=== PATIENT | male | born 1950 | race Two or more races ===

== ENCOUNTER 2017-05-18 20:00 | Inpatient (IN) | payer MEDICARE, MEDICAID ==
[2017-05-18 20:39] VITALS: BP 134/72
[2017-05-18] MEDS ORDERED: Maalox 30 mL Cup PO PRN (22:14)
[2017-05-18] MEDS ORDERED: Magnesium Hydroxide (MOM) 30 mL UDC PO PRN (22:14)
[2017-05-19] MEDS: Multivitamin Tab PO SCH (08:39)
--- NOTE | 2017-05-19 20:37 | Psychosocial Evaluation ---
DATE OF SERVICE: JUSTIFICATION FOR HOSPITALIZATION: The patient acting bizarre, apparently acting strange behind the worship, agitated. CHIEF COMPLAINT: "I am here because they brought me." HISTORY OF PRESENT ILLNESS: A 67-year-old male acting strange apparently behind the worship, variable information, very poor historian, minimizing all of his symptoms. Denying depression, denying anxiety. States he was not combative or agitated. He states that he was not suicidal. Apparently acting bizarre by the police. The patient states he sleeps okay, eating okay. Denying any anhedonia, hopeless thoughts. PAST PSYCHIATRIC HISTORY: Unclear. Denies any psychiatric hospitalizations. Denies suicide history. MEDICATIONS: Noted. FAMILY HISTORY: Unknown. SOCIAL HISTORY: Born in [place], living in [place], not . He states he has 5 kids. Denies drugs, alcohol or tobacco, but U-tox positive for methamphetamines and alcohol, which could certainly at least partially explain some of his behaviors. MEDICAL HISTORY: Noted. MENTAL STATUS EXAMINATION: Stated age, calm, cooperative, fair orientation, mood clinical fine. Affect flat, fairly nonchalant and different. Thought processes were grossly engaged, not the best historian, minimizing his symptoms. No overt SI or HI, but he was acting quite bizarre that is why he was brought in to the hospital. Insight and judgment diminished. PROVISIONAL DIAGNOSES: Psychosis, unspecified; mood, unspecified. Under medical, please see full H and P. ESTIMATED LENGTH OF STAY: 5-7 days. ASSESSMENT: The patient requiring inpatient hospitalization, acting bizarre, strange, brought in by police. PLAN: We will continue to monitor. We will show patient's a safe discharge plan and potentially start medications as needed. CONDITIONS FOR DISCHARGE: Improved mood, improved affect and better control of any psychotic symptoms. JOB# [id number]
--- NOTE | 2017-05-19 20:50 | History & Physical ---
ADMIT DATE: 05/18/2017 HISTORY OF PRESENT ILLNESS: The patient is a 67-year-old male admitted to our [facility] under Dr. Russ's service for evaluation and treatment. The patient denies any chest pain, shortness of breath, nausea, vomiting, fever, or chills. PAST MEDICAL HISTORY: Significant for anxiety disorder and degenerative joint disease. PAST SURGICAL HISTORY: No recent surgery. ALLERGIES: None. MEDICATIONS: Follow admission reconciliation. SOCIAL HISTORY: No smoking. No alcohol. No drugs. FAMILY HISTORY: Noncontributory. REVIEW OF SYSTEMS: IMMUNO SYSTEM: No history of chronic renal disorder. CARDIOVASCULAR SYSTEM: No coronary artery disease. ENDOCRINE SYSTEM: No diabetes or thyroid problem. GASTROINTESTINAL SYSTEM: No upper or lower gastrointestinal bleed. NEUROLOGICAL SYSTEM: No seizure disorder. MUSCULOSKELETAL SYSTEM: No muscular dystrophy. HEMATOLOGIC SYSTEM: No bleeding tendency. RESPIRATORY SYSTEM: No asthma. GENITOURINARY: No dysuria or hematuria. PHYSICAL EXAMINATION: GENERAL: He is awake, alert, and oriented. VITAL SIGNS: Temperature 98, heart rate 88, and blood pressure 132/70. HEENT: Normocephalic. Pupils reacting to light. Sclerae clear. NECK: Supple. Negative for lymphadenopathy, JVD, or bruit. CHEST: Air entry bilaterally normal. No rales, rhonchi, or wheezing. HEART: S1 and S2 normal. No gallop rhythm. ABDOMEN: Soft. Bowel sounds positive. EXTREMITIES: No edema. NEUROLOGIC: Awake, alert, and oriented. No focal motor or sensory deficit. Cranial nerves 2-12 is intact. ASSESSMENT: 1. Degenerative joint disease. 2. Chronic anxiety disorder. PLAN: The patient in the hospital under Dr. Russ's service. Medical problems addressed during hospitalization was anxiety disorder. Medical problems to be addressed at discharge is degenerative joint disease. The patient is medically stable for activity. Thank you, Dr. Russ, for asking me to see your patient. [facility]# [id number]
[2017-05-20] MEDS: Multivitamin Tab PO SCH (09:27)
--- NOTE | 2017-05-20 19:26 | Internal Medicine Prog Note ---
Internal Medicine Subjective - Subjective Service Date: 05/20/17 Patient seen and examined:: with staff Patient is:: awake, in bed, talking, confused Per staff patient has:: no adverse event (NO CHST PAIN OR SOB) Internal Medicine Objective - Results Recent Labs: Laboratory Last Values POC Glucose 60 MG/DL (70 - 105) L 05/18/17 21:38 - Physical Exam Vitals and I&O: Vital Signs Temp 98.4 F 05/20/17 15:08 Pulse 72 05/20/17 15:08 Resp 18 05/20/17 15:08 BP 120/74 05/20/17 15:08 Pulse Ox 95 05/20/17 15:08 Intake & Output 05/20/17 05/20/17 05/21/17 06:59 18:59 07:59 Intake Total 028 728 8800 Balance 422 336 6385 Intake: Oral 642 009 1089 Other: # Voids 1 2 3 # Bowel Movements 0 1 Active Medications: Current Medications Acetaminophen (Tylenol) 650 mg PO Q4HR PRN PRN Reason: Mild Pain / Temp above 100 Stop: 07/17/17 21:25 Al Hydrox/Mg Hydrox/Simethicone (Maalox) 30 ml PO Q4HR PRN PRN Reason: GI DISTRESS Stop: 07/17/17 22:13 Lorazepam (Ativan) 0.5 mg PO Q4HR PRN; Protocol PRN Reason: Anxiety Stop: 06/17/17 22:13 Magnesium Hydroxide (Milk Of Magnesia) 30 ml PO HS PRN PRN Reason: Constipation Multivitamins/Vitamin C (Theragran) 1 tab PO DAILY KAYA Stop: 07/18/17 08:59 Last Admin: 05/20/17 09:27 Dose: 1 tab Zolpidem Tartrate (Ambien) 5 mg PO HS PRN PRN Reason: Insomnia Stop: 07/17/17 22:13 General: demented HEENT: NC/AT, PERRLA, EOMI, anicteric sclerae, throat clear Neck: Supple, No JVD, No thyromegaly Lungs: CTAB Cardiovascular: RRR, Normal S1, Normal S2, without murmur Abdomen: non-tender, non-distended Extremities: clear Neurological: no change Internal Medicine Assmt/Plan - Assessment Assessment: 1.DJD. 2.CHRONIC ANXIETY DISORDER - Plan Plan: CONTINUE ON CURRENT MEDICATION AND DIET.
--- NOTE | 2017-05-21 05:17 | Progress Notes ---
DATE: Dr. Luciano covering for Dr. Russ. SUBJECTIVE: Chart reviewed and the patient interviewed. Also discussed the patient's condition with the staff and reviewed records and labs. The patient continued to be a poor historian and still seems to be psychotic and responding. The patient also is minimizing the reason why he is in the hospital. Apparently, the patient was acting strange behind gnosticist. He also denying all symptoms of problems. The patient also needs redirections because of episodes of irritability and agitation. During interview, the patient seems to be preoccupied and responding. ASSESSMENT: The patient is still psychotic. TREATMENT PLAN: We will continue monitoring his behavior and his condition and continue adjusting psychotropic medications and continue to work on evaluating his condition and followup. JOB# [id number]
[2017-05-21] MEDS: Multivitamin Tab PO SCH (08:09)
--- NOTE | 2017-05-21 23:51 | Internal Medicine Prog Note ---
Internal Medicine Subjective - Subjective Service Date: 05/21/17 Patient seen and examined:: without staff Patient is:: awake, in bed, talking, confused Per staff patient has:: no adverse event (NO CHST PAIN OR SOB) Internal Medicine Objective - Results Recent Labs: Laboratory Last Values POC Glucose 60 MG/DL (70 - 105) L 05/18/17 21:38 - Physical Exam Vitals and I&O: Vital Signs Temp 98.3 F 05/21/17 20:52 Pulse 76 05/21/17 20:52 Resp 18 05/21/17 20:52 BP 120/75 05/21/17 20:52 Pulse Ox 97 05/21/17 20:52 Intake & Output 05/21/17 05/21/17 05/22/17 06:59 18:59 06:59 Intake Total 1200 Balance 1200 Intake: Oral 1200 Other: # Voids 3 # Bowel Movements Active Medications: Current Medications Acetaminophen (Tylenol) 650 mg PO Q4HR PRN PRN Reason: Mild Pain / Temp above 100 Stop: 07/17/17 21:25 Al Hydrox/Mg Hydrox/Simethicone (Maalox) 30 ml PO Q4HR PRN PRN Reason: GI DISTRESS Stop: 07/17/17 22:13 Lorazepam (Ativan) 0.5 mg PO Q4HR PRN; Protocol PRN Reason: Anxiety Stop: 06/17/17 22:13 Last Admin: 05/21/17 20:42 Dose: 0.5 mg Magnesium Hydroxide (Milk Of Magnesia) 30 ml PO HS PRN PRN Reason: Constipation Multivitamins/Vitamin C (Theragran) 1 tab PO DAILY KAYA Stop: 07/18/17 08:59 Last Admin: 05/21/17 08:09 Dose: 1 tab Zolpidem Tartrate (Ambien) 5 mg PO HS PRN PRN Reason: Insomnia Stop: 07/17/17 22:13 Last Admin: 05/21/17 20:42 Dose: 5 mg General: demented HEENT: NC/AT, PERRLA, EOMI, anicteric sclerae, throat clear Neck: Supple, No JVD, No thyromegaly Lungs: CTAB Cardiovascular: RRR, Normal S1, Normal S2, without murmur Abdomen: non-tender, non-distended Extremities: clear Neurological: no change Internal Medicine Assmt/Plan - Assessment Assessment: 1.DJD. 2.CHRONIC ANXIETY DISORDER - Plan Plan: CONTINUE ON CURRENT MEDICATION AND DIET.
[2017-05-22] MEDS: Multivitamin Tab PO SCH (09:09)
--- NOTE | 2017-05-22 19:07 | Internal Medicine Prog Note ---
Internal Medicine Subjective - Subjective Service Date: 05/22/17 Patient seen and examined:: with staff (no complaint) Patient is:: awake, in bed, talking, confused Per staff patient has:: no adverse event (NO CHST PAIN OR SOB) Internal Medicine Objective - Results Recent Labs: Laboratory Last Values POC Glucose 60 MG/DL (70 - 105) L 05/18/17 21:38 - Physical Exam Vitals and I&O: Vital Signs Temp 98.2 F 05/22/17 15:13 Pulse 66 05/22/17 15:13 Resp 19 05/22/17 15:13 BP 119/75 05/22/17 15:13 Pulse Ox 97 05/22/17 15:13 Intake & Output 05/22/17 05/22/17 05/23/17 06:59 18:59 06:59 Intake Total 1320 1200 Balance 1320 1200 Intake: Oral 1320 1200 Other: # Voids 2 4 # Bowel Movements 1 Active Medications: Current Medications Acetaminophen (Tylenol) 650 mg PO Q4HR PRN PRN Reason: Mild Pain / Temp above 100 Stop: 07/17/17 21:25 Al Hydrox/Mg Hydrox/Simethicone (Maalox) 30 ml PO Q4HR PRN PRN Reason: GI DISTRESS Stop: 07/17/17 22:13 Lorazepam (Ativan) 0.5 mg PO Q4HR PRN; Protocol PRN Reason: Anxiety Stop: 06/17/17 22:13 Last Admin: 05/21/17 20:42 Dose: 0.5 mg Magnesium Hydroxide (Milk Of Magnesia) 30 ml PO HS PRN PRN Reason: Constipation Multivitamins/Vitamin C (Theragran) 1 tab PO DAILY KAYA Stop: 07/18/17 08:59 Last Admin: 05/22/17 09:09 Dose: 1 tab Zolpidem Tartrate (Ambien) 5 mg PO HS PRN PRN Reason: Insomnia Stop: 07/17/17 22:13 Last Admin: 05/21/17 20:42 Dose: 5 mg General: demented HEENT: NC/AT, PERRLA, EOMI, anicteric sclerae, throat clear Neck: Supple, No JVD, No thyromegaly Lungs: CTAB Cardiovascular: RRR, Normal S1, Normal S2, without murmur Abdomen: non-tender, non-distended Extremities: clear Neurological: no change Internal Medicine Assmt/Plan - Assessment Assessment: 1.DJD. 2.CHRONIC ANXIETY DISORDER - Plan Plan: CONTINUE ON CURRENT MEDICATION AND DIET.
--- NOTE | 2017-05-22 19:15 | Progress Notes ---
DATE: 05/22/2017 SUBJECTIVE: The patient is currently in the hospital, he was acting strange behind the synagogue, brought to the hospital. Apparently, he has been using drugs, now wants to leave. The patient's talking about being in the hospital because of " ", states he has to go back to work. Ongoing safety concerns given his odd behaviors. The patient remains somewhat isolative and reclusive. Dr. Luciano saw the patient over the weekend noting that he remained a poor historian. There were concerns about any psychotic symptoms, still somewhat hyper scientology and preoccupied. MEDICATIONS: Reviewed. ASSESSMENT: The patient seems to be calmer, more cooperative, any psychotic symptoms seems to be dissipating. It seems he had been using drugs and seems to be clearing up. PLAN: We will continue to monitor. We will err on the side of caution and monitor for further 1-2 days to make sure he is devoid of any psychotic symptoms. We will monitor and follow up and coordinate care with clinical social work aide. JOB# [id number]
[2017-05-23 08:31] LABS: % BASOPHILS 0.9 % (0.0-2.0); EOSINOPHILE ABSOLUTE 0.2 Th/cmm (0.1-0.4); LYMPHOCYTE ABSOLUTE 0.8 Th/cmm (1.5-3.0); MEAN PLATELET VOLUME 7.8 fl; MONOCYTE ABSOLUTE 0.3 Th/cmm (0.3-1.0); NEUTROPHILE ABSOLUTE 2.5 Th/cmm (1.8-8.0)
[2017-05-23 08:34] LABS: % EOSINOPHILS 4.4 % (0.0-5.0); % LYMPHOCYTES 21.5 % (20.0-50.0); % MONOCYTES 9.1 % (2.0-10.0); % NEUTROPHILS 64.1 % (40.0-80.0); HEMATOCRIT 42.6 % (41.0-60); HEMOGLOBIN 14.2 gm/dL (12-16); MEAN CELL VOLUME 92.8 fl (80-99); MEAN CORPUSCULAR HGB CONC 33.4 pg (28.0-36.0); PLATELET COUNT 263 Th/cmm (150-400); RED BLOOD COUNT 4.59 Mil/cmm (3.80-5.80); RED CELL DISTRIBUTION WIDTH 13.1 % (11.5-20.0)
[2017-05-23 08:42] LABS: WHITE BLOOD COUNT 3.8 Th/cmm (4.8-10.8)
[2017-05-23 08:46] LABS: ALB/GLOB RATIO 1.2 (1.0-1.8); ALBUMIN 4.2 gm/dL (4.2-5.5); ALKALINE PHOSPHATASE 62 U/L (34-104); ANION GAP 8.4 (7.0-16.0); BILIRUBIN,TOTAL 0.3 mg/dL (0.3-1.0); BUN - UREA NITROGEN 18 mg/dL (7-25); CALCIUM SERUM 10.1 mg/dL (8.6-10.3); CARBON DIOXIDE 28.6 mEq/L (21.0-31.0); CHLORIDE 103 mEq/L (98-107); CREATININE - SERUM 0.9 mg/dL (0.7-1.3); GFR AFRICAN-AMERICAN > 60.0 ml/min (>90); GFR NON AFRICAN-AMERICAN > 60.0 ml/min; GLUCOSE 99 mg/dL (70-105); SGOT 24 U/L (13-39); SGPT/ALT 24 U/L (7-52); SODIUM SERUM 136 mEq/L (136-145); TOTAL PROTEIN,SERUM 7.6 gm/dL (6.0-8.3)
[2017-05-23] MEDS: Multivitamin Tab PO SCH (10:03)
--- NOTE | 2017-05-23 18:23 | Progress Notes ---
DATE: 05/23/2017 SUBJECTIVE: The patient in the hospital, acting strange behind the faith, seems calmer, more cooperative, but still paranoid, reclusive and isolated. Still claiming he is being persecuted by trish and tiffanie. He has some insight that his verbalizations are somewhat off putting stating "I understand no one believes me because no one can actually see these demons." The patient seems in distress, still seemingly psychotic and paranoid. However, he is calmer, more cooperative, any evidence of dangerousness seems to be dissipating. PLAN: We will continue to monitor. We will initiate antipsychotic medications. I was optimistic that after methamphetamines were expunged that his psychotic symptoms would dissipate and extinguish, but they are still ongoing. We will attempt to treat the psychotic symptoms by initiating Risperdal. JOB# [id number]
[2017-05-24] MEDS: Multivitamin Tab PO SCH (09:34)
--- NOTE | 2017-05-24 13:37 | Internal Medicine Prog Note ---
Internal Medicine Subjective - Subjective Service Date: 05/23/17 Patient seen and examined:: without staff Patient is:: awake, in bed, talking, confused Per staff patient has:: no adverse event (NO CHST PAIN OR SOB) Internal Medicine Objective - Results Result Diagrams: 05/23/17 07:55 05/23/17 07:55 Recent Labs: Laboratory Last Values WBC 3.8 Th/cmm (4.8-10.8) L 05/23/17 07:55 RBC 4.59 Mil/cmm (3.80-5.80) 05/23/17 07:55 Hgb 14.2 gm/dL (12-16) 05/23/17 07:55 Hct 42.6 % (41.0-60) 05/23/17 07:55 MCV 92.8 fl (80-99) 05/23/17 07:55 MCH 31.0 pg (27.0-31.0) 05/23/17 07:55 MCHC Differential 33.4 pg (28.0-36.0) 05/23/17 07:55 RDW 13.1 % (11.5-20.0) 05/23/17 07:55 Plt Count 263 Th/cmm (150-400) 05/23/17 07:55 MPV 7.8 fl 05/23/17 07:55 Neutrophils % 64.1 % (40.0-80.0) 05/23/17 07:55 Lymphocytes % 21.5 % (20.0-50.0) 05/23/17 07:55 Monocytes % 9.1 % (2.0-10.0) 05/23/17 07:55 Eosinophils % 4.4 % (0.0-5.0) 05/23/17 07:55 Basophils % 0.9 % (0.0-2.0) 05/23/17 07:55 Sodium 136 mEq/L (136-145) 05/23/17 07:55 Potassium 4.0 mEq/L (3.5-5.1) 05/23/17 07:55 Chloride 103 mEq/L (98-107) 05/23/17 07:55 Carbon Dioxide 28.6 mEq/L (21.0-31.0) 05/23/17 07:55 Anion Gap 8.4 (7.0-16.0) 05/23/17 07:55 BUN 18 mg/dL (7-25) 05/23/17 07:55 Creatinine 0.9 mg/dL (0.7-1.3) 05/23/17 07:55 Est GFR ( Amer) > 60.0 ml/min (>90) 05/23/17 07:55 Est GFR (Non-Af Amer) > 60.0 ml/min 05/23/17 07:55 BUN/Creatinine Ratio 20.0 05/23/17 07:55 Glucose 99 mg/dL (70-105) 05/23/17 07:55 POC Glucose 60 MG/DL (70 - 105) L 05/18/17 21:38 Calcium 10.1 mg/dL (8.6-10.3) 05/23/17 07:55 Total Bilirubin 0.3 mg/dL (0.3-1.0) 05/23/17 07:55 AST 24 U/L (13-39) 05/23/17 07:55 ALT 24 U/L (7-52) 05/23/17 07:55 Alkaline Phosphatase 62 U/L (34-104) 05/23/17 07:55 Total Protein 7.6 gm/dL (6.0-8.3) 05/23/17 07:55 Albumin 4.2 gm/dL (4.2-5.5) 05/23/17 07:55 Globulin 3.4 gm/dL 05/23/17 07:55 Albumin/Globulin Ratio 1.2 (1.0-1.8) 05/23/17 07:55 - Physical Exam Vitals and I&O: Vital Signs Temp 97.9 F 05/24/17 06:33 Pulse 67 05/24/17 06:33 Resp 19 05/24/17 06:33 BP 148/93 05/24/17 06:33 Pulse Ox 98 05/24/17 06:33 Intake & Output 05/23/17 05/24/17 05/24/17 18:59 06:59 18:59 Intake Total 1500 480 Balance 1500 480 Intake: Oral 1500 480 Other: # Voids 3 1 # Bowel Movements 1 Active Medications: Current Medications Acetaminophen (Tylenol) 650 mg PO Q4HR PRN PRN Reason: Mild Pain / Temp above 100 Stop: 07/17/17 21:25 Al Hydrox/Mg Hydrox/Simethicone (Maalox) 30 ml PO Q4HR PRN PRN Reason: GI DISTRESS Stop: 07/17/17 22:13 Lorazepam (Ativan) 0.5 mg PO Q4HR PRN; Protocol PRN Reason: Anxiety Stop: 06/17/17 22:13 Last Admin: 05/21/17 20:42 Dose: 0.5 mg Magnesium Hydroxide (Milk Of Magnesia) 30 ml PO HS PRN PRN Reason: Constipation Multivitamins/Vitamin C (Theragran) 1 tab PO DAILY KAYA Stop: 07/18/17 08:59 Last Admin: 05/24/17 09:34 Dose: Not Given Risperidone (Risperdal) 0.5 mg PO BID KAYA PRN Reason: Protocol Stop: 07/22/17 16:59 Last Admin: 05/24/17 09:34 Dose: Not Given Zolpidem Tartrate (Ambien) 5 mg PO HS PRN PRN Reason: Insomnia Stop: 07/17/17 22:13 Last Admin: 05/22/17 21:18 Dose: 5 mg General: demented HEENT: NC/AT, PERRLA, EOMI, anicteric sclerae, throat clear Neck: Supple, No JVD, No thyromegaly Lungs: CTAB Cardiovascular: RRR, Normal S1, Normal S2, without murmur Abdomen: non-tender, non-distended Extremities: clear Neurological: no change Internal Medicine Assmt/Plan - Assessment Assessment: 1.DJD. 2.CHRONIC ANXIETY DISORDER - Plan Plan: CONTINUE ON CURRENT MEDICATION AND DIET.
--- NOTE | 2017-05-24 19:41 | Progress Notes ---
DATE: 05/24/2017 SUBJECTIVE: The patient is currently in the hospital, he was acting strange going to yarsanism. States he is feeling "better." The patient is answering questions more appropriately. He states he wants to leave the hospital, get a "good meal." He states he rents a room from somebody, a living room, "a small space." No longer talking about Satans and demons. Stating, "I don't feel like that anymore, I feel better." He is calmer, more cooperative and his psychotic symptoms seem to be dissipating. ASSESSMENT: The patient seems to be improving, calmer, more cooperative, responsive to medications. Medications were noted. No side effects, no EPS. PLAN: I will continue to monitor, titrate and adjust medications. We will coordinate care with social work regarding safe discharge plan ____ follow up. JOB# [id number]
[2017-05-25] MEDS: Multivitamin Tab PO SCH (08:30)
--- NOTE | 2017-05-25 15:05 | Internal Medicine Prog Note ---
Internal Medicine Subjective - Subjective Service Date: 05/25/17 Patient seen and examined:: with staff Patient is:: awake, in bed, talking, confused Per staff patient has:: no adverse event (NO CHST PAIN OR SOB) Internal Medicine Objective - Results Result Diagrams: 05/23/17 07:55 05/23/17 07:55 Recent Labs: Laboratory Last Values WBC 3.8 Th/cmm (4.8-10.8) L 05/23/17 07:55 RBC 4.59 Mil/cmm (3.80-5.80) 05/23/17 07:55 Hgb 14.2 gm/dL (12-16) 05/23/17 07:55 Hct 42.6 % (41.0-60) 05/23/17 07:55 MCV 92.8 fl (80-99) 05/23/17 07:55 MCH 31.0 pg (27.0-31.0) 05/23/17 07:55 MCHC Differential 33.4 pg (28.0-36.0) 05/23/17 07:55 RDW 13.1 % (11.5-20.0) 05/23/17 07:55 Plt Count 263 Th/cmm (150-400) 05/23/17 07:55 MPV 7.8 fl 05/23/17 07:55 Neutrophils % 64.1 % (40.0-80.0) 05/23/17 07:55 Lymphocytes % 21.5 % (20.0-50.0) 05/23/17 07:55 Monocytes % 9.1 % (2.0-10.0) 05/23/17 07:55 Eosinophils % 4.4 % (0.0-5.0) 05/23/17 07:55 Basophils % 0.9 % (0.0-2.0) 05/23/17 07:55 Sodium 136 mEq/L (136-145) 05/23/17 07:55 Potassium 4.0 mEq/L (3.5-5.1) 05/23/17 07:55 Chloride 103 mEq/L (98-107) 05/23/17 07:55 Carbon Dioxide 28.6 mEq/L (21.0-31.0) 05/23/17 07:55 Anion Gap 8.4 (7.0-16.0) 05/23/17 07:55 BUN 18 mg/dL (7-25) 05/23/17 07:55 Creatinine 0.9 mg/dL (0.7-1.3) 05/23/17 07:55 Est GFR ( Amer) > 60.0 ml/min (>90) 05/23/17 07:55 Est GFR (Non-Af Amer) > 60.0 ml/min 05/23/17 07:55 BUN/Creatinine Ratio 20.0 05/23/17 07:55 Glucose 99 mg/dL (70-105) 05/23/17 07:55 POC Glucose 60 MG/DL (70 - 105) L 05/18/17 21:38 Calcium 10.1 mg/dL (8.6-10.3) 05/23/17 07:55 Total Bilirubin 0.3 mg/dL (0.3-1.0) 05/23/17 07:55 AST 24 U/L (13-39) 05/23/17 07:55 ALT 24 U/L (7-52) 05/23/17 07:55 Alkaline Phosphatase 62 U/L (34-104) 05/23/17 07:55 Total Protein 7.6 gm/dL (6.0-8.3) 05/23/17 07:55 Albumin 4.2 gm/dL (4.2-5.5) 05/23/17 07:55 Globulin 3.4 gm/dL 05/23/17 07:55 Albumin/Globulin Ratio 1.2 (1.0-1.8) 05/23/17 07:55 - Physical Exam Vitals and I&O: Vital Signs Temp 97 F 05/25/17 12:08 Pulse 77 05/25/17 12:08 Resp 20 05/25/17 12:08 BP 126/71 05/25/17 12:08 Pulse Ox 97 05/25/17 06:44 Intake & Output 05/24/17 05/25/17 05/25/17 18:59 06:59 18:59 Intake Total 0 120 Balance 0 120 Intake: Oral 0 120 Other: # Voids 5 2 Active Medications: Current Medications Acetaminophen (Tylenol) 650 mg PO Q4HR PRN PRN Reason: Mild Pain / Temp above 100 Stop: 05/07/18 21:25 Al Hydrox/Mg Hydrox/Simethicone (Maalox) 30 ml PO Q4HR PRN PRN Reason: GI DISTRESS Stop: 07/17/17 22:13 Lorazepam (Ativan) 0.5 mg PO Q4HR PRN; Protocol PRN Reason: Anxiety Stop: 06/17/17 22:13 Last Admin: 05/21/17 20:42 Dose: 0.5 mg Magnesium Hydroxide (Milk Of Magnesia) 30 ml PO HS PRN PRN Reason: Constipation Multivitamins/Vitamin C (Theragran) 1 tab PO DAILY KAYA Stop: 07/18/17 08:59 Last Admin: 05/25/17 08:30 Dose: Not Given Risperidone (Risperdal) 0.5 mg PO BID KAYA PRN Reason: Protocol Stop: 07/22/17 16:59 Last Admin: 05/25/17 08:30 Dose: Not Given Zolpidem Tartrate (Ambien) 5 mg PO HS PRN PRN Reason: Insomnia Stop: 07/17/17 22:13 Last Admin: 05/22/17 21:18 Dose: 5 mg General: demented HEENT: NC/AT, PERRLA, EOMI, anicteric sclerae, throat clear Neck: Supple, No JVD, No thyromegaly Lungs: CTAB Cardiovascular: RRR, Normal S1, Normal S2, without murmur Abdomen: non-tender, non-distended Extremities: clear Neurological: no change Internal Medicine Assmt/Plan - Assessment Assessment: 1.DJD. 2.CHRONIC ANXIETY DISORDER - Plan Plan: CONTINUE ON CURRENT MEDICATION AND DIET.
--- NOTE | 2017-05-25 22:28 | Discharge Summary ---
DATE OF DISCHARGE: 05/25/2017 JUSTIFICATION FOR HOSPITALIZATION: Bizarre, hyper-scientology, acting strange, behind a worship. HISTORY OF PRESENT ILLNESS: A 67-year-old male acting strangely, behind the worship, poor historian, minimizing symptoms, not combative, not agitated, not suicidal, but there were concerns about his ability to care for his basic needs. PAST PSYCHIATRIC HISTORY: Unclear. Denies psych hospitalizations. SOCIAL HISTORY: Born in [place]. The patient did admit to me that he was using methamphetamines. MENTAL STATUS EXAMINATION: Please see full psych eval for details. PROVISIONAL DIAGNOSES: Psychosis, unspecified; mood, unspecified; rule out schizophrenia; meth use disorder, severe; substance-induced psychosis. Medical: Please see full H and P. HOSPITAL COURSE: After initial assessment, the patient was monitored, his behavior did improve. He was less bizarre, more oriented. However, he remains psychotic, hyper-scientology, talking about demons and satan and very paranoid. Risperdal was initiated to target these symptoms over the course of the hospitalization and began to improve, mood improved, affect improved, no longer psychotic toward the latter end of his hospitalization. Sleeping well. Eating well. Staff noting robust improvement. CONDITION UPON DISCHARGE: Improved. Better ADLs. Good eye contact. More sociable and engaged. Linear on exam. Mood "better." Affect broad. Thought processes were as noted linear. No SI, no HI, no intent, no plan, no psychotic symptoms, no paranoia. No longer talking about satan or the devil or spirits. Better insight and judgment as exemplified by better understanding of his disease process. Good compliance. The patient hopeful and motivated. Placement was confirmed. DISCHARGE DIAGNOSES: Schizophrenia, substance-induced psychosis, substance-induced mood disorder, meth use disorder, severe. Medical: Please see full H and P. PROGNOSIS: The patient follows up with outpatient mental health services and remains treatment compliant. Prognosis will improve, otherwise guarded. [facility]# [id number]
== END 2017-05-25 15:00 | disposition home or self-care (01) | DRG 885 ==
LOC: GERO 20:00
PROVIDERS: ADMIT Psychiatry & Neurology Psychiatry; ATTEND Psychiatry & Neurology Psychiatry
DX: F20.9 Schizophrenia, unspecified (principal); F10.20 Alcohol dependence, uncomplicated; F19.94 Other psychoactive substance use, unspecified with psychoactive substance-induced mood disorder; M19.90 Unspecified osteoarthritis, unspecified site; F41.9 Anxiety disorder, unspecified; F19.959 Other psychoactive substance use, unspecified with psychoactive substance-induced psychotic disorder, unspecified; Y90.9 Presence of alcohol in blood, level not specified
CPT/HCPCS: 36415-UA; 80053-TC; 82948-90; 85025-TC